=== PATIENT | male | born 1990 | race Caucasian/White ===

== ENCOUNTER 2021-11-01 19:03 | Emergency (ER) | payer OTHER ==
[2021-11-01] MEDS ORDERED: CLINDAMYCIN 150 MG CAP PO STA (20:04)
--- NOTE | 2021-11-01 20:09 | ED ---
Eye Problem HPI - General Chief complaint: Eye Problems Stated complaint: Eye Infection Source: patient Mode of arrival: ambulatory Limitations: no limitations - History of Present Illness Initial comments: Patient is a 31-year-old male who presents to the emergency department with right lower eyelid swelling. Patient reports that he woke up yesterday with the swelling. He denies eye injury or trauma. Patient states he he has been working outside and thinks he may have been bit. Patient states he tried to pop it does cause increased swelling. He denies eye pain, blurry vision, and double vision. Patient denies recent upper respiratory infection. Patient denies recent sick contacts. - Related Data Previous Rx's Medication Instructions Recorded Clindamycin HCl 300 mg PO Q6HR 10 Days #40 cap 11/01/21 Allergies Allergy/AdvReac Type Severity Reaction Status Date / Time No Known Allergies Allergy Verified 11/01/21 19:33 Review of Systems ROS Statement: Those systems with pertinent positive or pertinent negative responses have been documented in the HPI. ROS Other: All systems not noted in ROS Statement are negative. Past Medical History Past Medical History: No Reported History History of Any Multi-Drug Resistant Organisms: None Reported Past Surgical History: No Surgical Hx Reported Past Psychological History: ADD/ADHD Smoking Status: Current every day smoker Past Alcohol Use History: Occasional Past Drug Use History: Marijuana General Exam Limitations: no limitations General appearance: alert, in no apparent distress Head exam: Present: atraumatic, normocephalic, normal inspection Eye exam: Present: PERRL, EOMI (No pain with movement), other (Swelling and erythema in the right medial canthus region, nonfluctuant). Absent: scleral icterus, conjunctival injection, periorbital tenderness ENT exam: Present: normal oropharynx, TM's normal bilaterally Neck exam: Present: normal inspection, full ROM. Absent: lymphadenopathy Respiratory exam: Present: normal lung sounds bilaterally. Absent: respiratory distress, wheezes, rales, rhonchi, stridor Cardiovascular Exam: Present: regular rate, normal rhythm, normal heart sounds. Absent: systolic murmur, diastolic murmur, rubs, gallop, clicks GI/Abdominal exam: Present: soft, normal bowel sounds. Absent: distended, tenderness, guarding, rebound, rigid Neurological exam: Present: alert, oriented X3, CN II-XII intact Psychiatric exam: Present: normal affect, normal mood Skin exam: Present: warm, dry, intact, normal color. Absent: rash Course Vital Signs 11/01/21 19:30 Temperature 98.9 F Pulse Rate 85 Respiratory 18 Rate Blood Pressure 130/79 O2 Sat by Pulse 96 Oximetry Medical Decision Making - Medical Decision Making This is a 31-year-old male who presents with right lower eyelid swelling since yesterday morning. Thorough history and examination were performed. Patient afebrile. There is edema and redness in the the right medial canthus region that is non-fluctuant. It is nontender to palpation. PERRL. Patient denies blurry vision, double vision, and pain with eye movement. He denies upper respiratory symptoms and recent sick contacts. Patient will be discharged with ophthalmology referral and clindamycin prescription. He is instructed to take the clindamycin as directed and return to the emergency department if he experiences new, concerning, or worsening symptoms, including not limited to severe eye pain or vision changes. Patient verbalizes understanding and is agreeable to plan. Dr. Bee is my attending. Disposition Clinical Impression: Eyelid gland swelling Disposition: HOME SELF-CARE Condition: Good Additional Instructions: Please take medication as directed. It is important that you follow-up with ophthalmology at earliest available appointment. Return to the emergency department if you experience new, concerning, or worsening symptoms, not limited to eye pain or changes in vision. Prescriptions: Clindamycin HCl 300 mg PO Q6HR 10 Days #40 cap Is patient prescribed a controlled substance at d/c from ED?: No Referrals: None,Stated [Primary Care Provider] - 1-2 days Jill James MD [STAFF PHYSICIAN] - 1-2 days Time of Disposition: 20:09
[2021-11-01 20:23] VITALS: BP 140/75; PULSE 90; RESP 16; TEMP 97.6
== END 2021-11-01 20:23 | disposition home or self-care (01) ==
LOC: EC 19:03
DX: R59.9 Enlarged lymph nodes, unspecified (principal); F17.200 Nicotine dependence, unspecified, uncomplicated; F12.90 Cannabis use, unspecified, uncomplicated
CPT/HCPCS: 99283

== ENCOUNTER 2021-11-22 11:30 | Emergency (ER) | payer OTHER ==
[2021-11-22 12:04] VITALS: BP 114/70; PULSE 74; RESP 18; TEMP 98.6
--- NOTE | 2021-11-22 12:52 | ED ---
General Adult HPI - General Chief complaint: Dental/Oral Stated complaint: Dental Pain Time Seen by Provider: 11/22/21 12:06 Source: patient Mode of arrival: ambulatory Limitations: no limitations - History of Present Illness Initial comments: Dictation was produced using [employer] dictation software. please excuse any grammatical, word or spelling errors. Chief Complaint: 31-year-old male with poor dentition presents to the emergency department for dental and facial pain History of Present Illness: 31-year-old male who presents emergency department for 2-3 days of worsening dental and facial pain. Patient has poor dentition. Patient states the pain is to his left lower mandibular area and left chin. Patient had his mother called the dentist office and they requested he come to the emergency room to be started on antibiotics prior to dental evaluation. Patient denies any tongue swelling. Denies any pain under his chin. No difficulty breathing or difficulty swallowing. Patient has any constitutional symptoms. Denies any trismus The ROS documented in this emergency department record has been reviewed and confirmed by me. Those systems with pertinent positive or negative responses have been documented in the HPI. All other systems are other negative and/or noncontributory. PHYSICAL EXAM: General Impression: Alert and oriented x3, not in acute distress HEENT: Normocephalic atraumatic, extra-ocular movements intact, pupils equal and reactive to light bilaterally, mucous membranes moist, mild induration to the left anterior chain, no submandibular induration or swelling, sublingual space is nontender edematous. Patient not showing any respiratory distress, no neck swelling Cardiovascular: Heart regular rate and rhythm Chest: Able to complete full sentences, no retractions, no tachypnea Musculoskeletal: Pulses present and equal in all extremities, no peripheral edema Motor: no focal deficits noted Neurological: CN II-XII grossly intact, no focal motor or sensory deficits noted Skin: Intact with no visualized rashes Psych: Normal affect and mood ED course: 31-year-old male presents emergency Department with dental pain and dental infection. He is experiencing severe symptoms but is not showing any signs of Tre's angina. As upon arrival are within acceptable limits. Patient will be given oral antibiotics and oral analgesics. He has an appointment with the dentist in 4 days. Patient warned of the early signs of Tre's angina and told to seek medical medical attention if he starts experiencing symptoms like trismus, tongue swelling, difficulty breathing or swallowing etc. Patient is agreeable to plan. Patient will be discharged. - Related Data Previous Rx's Medication Instructions Recorded Clindamycin HCl 300 mg PO Q6HR 10 Days #40 cap 11/01/21 Amoxic-Pot Clav 875-125Mg 1 tab PO BID 10 Days #20 tab 11/22/21 [Augmentin 875-125] HYDROcodone/APAP 5-325MG [[place] 1 tab PO Q6HR PRN 3 Days #12 tab 11/22/21 5-325] Allergies Allergy/AdvReac Type Severity Reaction Status Date / Time codeine Allergy Unknown Verified 11/22/21 12:04 Review of Systems ROS Statement: Those systems with pertinent positive or pertinent negative responses have been documented in the HPI. ROS Other: All systems not noted in ROS Statement are negative. Past Medical History Past Medical History: No Reported History History of Any Multi-Drug Resistant Organisms: None Reported Past Surgical History: No Surgical Hx Reported Past Psychological History: ADD/ADHD Smoking Status: Current every day smoker Past Alcohol Use History: Occasional Past Drug Use History: Marijuana General Exam Limitations: no limitations Course Vital Signs 11/22/21 12:02 Temperature 98.6 F Pulse Rate 74 Respiratory 18 Rate Blood Pressure 114/70 O2 Sat by Pulse 99 Oximetry Disposition Clinical Impression: Dental infection Disposition: HOME SELF-CARE Condition: Fair Instructions (If sedation given, give patient instructions): Dental Abscess (ED) Prescriptions: Amoxic-Pot Clav 875-125Mg [Augmentin 875-125] 1 tab PO BID 10 Days #20 tab HYDROcodone/APAP 5-325MG [[place] 5-325] 1 tab PO Q6HR PRN 3 Days #12 tab PRN Reason: Severe Pain Is patient prescribed a controlled substance at d/c from ED?: Yes If prescribed controlled substance>3 days was MAPS reviewed?: Prescribed <3 Days Referrals: None,Stated [Primary Care Provider] - 1-2 days
== END 2021-11-22 13:00 | disposition home or self-care (01) ==
LOC: EC 11:30
DX: K04.7 Periapical abscess without sinus (principal); F90.9 Attention-deficit hyperactivity disorder, unspecified type; F17.200 Nicotine dependence, unspecified, uncomplicated; F12.90 Cannabis use, unspecified, uncomplicated; Z88.5 Allergy status to narcotic agent
CPT/HCPCS: 99282

== ENCOUNTER 2021-12-22 09:31 | Emergency (ER) | payer OTHER ==
[2021-12-22 09:43] VITALS: TEMP 98.3
[2021-12-22] MEDS ORDERED: ONDANSETRON 4 MG/2 ML VIAL IVP STA (10:01)
[2021-12-22] MEDS ORDERED: SODIUM CHLORIDE 0.9% 1,000 ML IV STA (10:01)
[2021-12-22 10:31] LABS: Basophils # (A) 0.1 k/uL (0-0.2); Basophils % (A) 1 %; Eosinophils # (A) 0.5 k/uL (0-0.7); Eosinophils % (A) 5 %; HCT 46.7 % (39.0-53.0); HGB 15.4 gm/dL (13.0-17.5); Lymphocytes # (A) 3.1 k/uL (1.0-4.8); Lymphocytes % (A) 31 %; MCH 27.9 pg (25.0-35.0); MCV 84.5 fL (80.0-100.0); Monocytes # (A) 0.6 k/uL (0-1.0); Monocytes % (A) 6 %; Neutrophils # (A) 5.5 k/uL (1.3-7.7); Neutrophils % (A) 56 %; Platelet Count 237 k/uL (150-450); RBC 5.53 m/uL (4.30-5.90); RDW 13.5 % (11.5-15.5)
[2021-12-22 10:40] LABS: ALT 391 U/L (4-49); AST 140 U/L (17-59); African American GFR (CKD) >90 (>60 ml/min/1.73 sqM); Albumin 4.3 g/dL (3.5-5.0); Alkaline Phosphatase 73 U/L (38-126); Amylase 50 U/L (30-110); Anion Gap 8 mmol/L; Blood Urea Nitrogen 11 mg/dL (9-20); Carbon Dioxide 29 mmol/L (22-30); Chloride 102 mmol/L (98-107); Glucose 98 mg/dL (74-99); Lipase 115 U/L (23-300); Non-African American GFR(CKD) >90 (>60 ml/min/1.73 sqM); Potassium 3.7 mmol/L (3.5-5.1); Sodium 139 mmol/L (137-145); Total Protein 7.5 g/dL (6.3-8.2)
[2021-12-22 11:08] LABS: Appearance,Urine Clear (Clear); Bilirubin,Urine Negative (Negative); Blood,Urine Negative (Negative); Color,Urine Yellow; Glucose,Urine (UA) Negative (Negative); Ketones,Urine Negative (Negative); Leukocyte Esterase,Urine Negative (Negative); Nitrite,Urine Negative (Negative); Protein,Urine Trace (Negative); Specific Gravity,Urine 1.017 (1.001-1.035)
--- NOTE | 2021-12-22 11:59 | ED ---
Abdominal Pain HPI - General Chief Complaint: Abdominal Pain Stated Complaint: abd pain Time Seen by Provider: 12/22/21 09:56 Source: patient, RN notes reviewed Mode of arrival: ambulatory Limitations: no limitations - History of Present Illness Initial Comments: This is a 31-year-old male who presents to the emergency department for nausea, vomiting, and abdominal pain. He initially had symptoms from 12/12-12/14 and then had symptoms again from 12/19 through today. States that the first time he had nausea, vomiting, and abdominal pain, and when symptoms returned for the second time, they started with just abdominal pain. His first episode of vom iting this time was this morning. He notes that he had a green and loose bowel movement this morning. Abdominal pain is described as being in the epigastric and periumbilical region. Denies any fevers, chills, sore throat, cough, dyspnea, chest pain, palpitations, back pain, or headaches. MD Complaint: abdominal pain Location: periumbilical, epigastric - Related Data Previous Rx's Medication Instructions Recorded Clindamycin HCl 300 mg PO Q6HR 10 Days #40 cap 11/01/21 Amoxic-Pot Clav 875-125Mg 1 tab PO BID 10 Days #20 tab 11/22/21 [Augmentin 875-125] HYDROcodone/APAP 5-325MG [[place] 1 tab PO Q6HR PRN 3 Days #12 tab 11/22/21 5-325] Ondansetron Odt [Zofran Odt] 4 mg PO Q8HR PRN #25 tab 12/22/21 Allergies Allergy/AdvReac Type Severity Reaction Status Date / Time codeine Allergy Unknown Verified 12/22/21 09:43 Review of Systems ROS Statement: Those systems with pertinent positive or pertinent negative responses have been documented in the HPI. ROS Other: All systems not noted in ROS Statement are negative. Past Medical History Past Medical History: No Reported History History of Any Multi-Drug Resistant Organisms: None Reported Past Surgical History: No Surgical Hx Reported Past Psychological History: ADD/ADHD Smoking Status: Current every day smoker Past Alcohol Use History: Occasional Past Drug Use History: Marijuana General Exam Limitations: no limitations General appearance: alert, in no apparent distress Head exam: Present: atraumatic, normocephalic, normal inspection Respiratory exam: Present: normal lung sounds bilaterally. Absent: respiratory distress, wheezes, rales, rhonchi, stridor Cardiovascular Exam: Present: regular rate, normal rhythm, normal heart sounds. Absent: systolic murmur, diastolic murmur, rubs, gallop, clicks GI/Abdominal exam: Present: soft, rebound (minor), normal bowel sounds, other (Improvement in pain when palpating the abdomen). Absent: distended Neurological exam: Present: alert, oriented X3, CN II-XII intact Psychiatric exam: Present: normal affect, normal mood Skin exam: Present: warm, dry, intact, normal color. Absent: rash Course Vital Signs 12/22/21 12/22/21 09:41 12:00 Temperature 98.3 F Pulse Rate 58 L 64 Respiratory 16 16 Rate Blood Pressure 134/81 137/87 O2 Sat by Pulse 100 98 Oximetry Medical Decision Making - Medical Decision Making This is a 31-year-old male who presents to the emergency department for abdominal pain, nausea, and vomiting. Patient did not exhibit any tenderness on examination. He was treated with IV fluids and Zofran. Lab work revealed elevated liver enzymes. Patient denies any known history of liver problems. He does use marijuana regularly with occasional alcohol use. Given the elevated liver enzymes and no prior imaging, ultrasound of the right upper quadrant was obtained. This revealed no abnormalities. Instructed the patient to become established with a primary care provider in order to have additional lab work and reevaluation of liver enzymes. Prescription for Zofran sent to the pharmacy for any additional nausea and vomiting. Return precautions reviewed in depth, the patient is instructed to return to the emergency department with any new, worsening, or concerning symptoms. Patient verbalized understanding. This case was discussed in detail with the attending ED physician. Presentation, findings, and treatment plan discussed in detail as well. - Lab Data Result diagrams: 12/22/21 10:12 12/22/21 10:12 Lab Results 12/22/21 12/22/21 12/22/21 Range/Units 10:12 10:12 10:12 WBC 10.0 (3.8-10.6) k/uL RBC 5.53 (4.30-5.90) m/uL Hgb 15.4 (13.0-17.5) gm/dL Hct 46.7 (39.0-53.0) % MCV 84.5 (80.0-100.0) fL MCH 27.9 (25.0-35.0) pg MCHC 33.0 (31.0-37.0) g/dL RDW 13.5 (11.5-15.5) % Plt Count 237 (150-450) k/uL MPV 8.0 Neutrophils % 56 % Lymphocytes % 31 % Monocytes % 6 % Eosinophils % 5 % Basophils % 1 % Neutrophils # 5.5 (1.3-7.7) k/uL Lymphocytes # 3.1 (1.0-4.8) k/uL Monocytes # 0.6 (0-1.0) k/uL Eosinophils # 0.5 (0-0.7) k/uL Basophils # 0.1 (0-0.2) k/uL Sodium 139 (137-145) mmol/L Potassium 3.7 (3.5-5.1) mmol/L Chloride 102 (98-107) mmol/L Carbon Dioxide 29 (22-30) mmol/L Anion Gap 8 mmol/L BUN 11 (9-20) mg/dL Creatinine 0.92 (0.66-1.25) mg/dL Est GFR (CKD-EPI)AfAm >90 (>60 ml/min/1.73 sqM) Est GFR (CKD-EPI)NonAf >90 (>60 ml/min/1.73 sqM) Glucose 98 (74-99) mg/dL Calcium 9.0 (8.4-10.2) mg/dL Total Bilirubin 1.0 (0.2-1.3) mg/dL AST 140 H (17-59) U/L ALT 391 H (4-49) U/L Alkaline Phosphatase 73 (38-126) U/L Total Protein 7.5 (6.3-8.2) g/dL Albumin 4.3 (3.5-5.0) g/dL Amylase 50 (30-110) U/L Lipase 115 (23-300) U/L Urine Color Yellow Urine Appearance Clear (Clear) Urine pH 6.0 (5.0-8.0) Ur Specific [place] 1.017 (1.001-1.035) Urine Protein Trace H (Negative) Urine Glucose (UA) Negative (Negative) Urine Ketones Negative (Negative) Urine Blood Negative (Negative) Urine Nitrite Negative (Negative) Urine Bilirubin Negative (Negative) Urine Urobilinogen 2.0 (<2.0) mg/dL Ur Leukocyte Esterase Negative (Negative) - Radiology Data Radiology results: report reviewed, image reviewed Disposition Clinical Impression: Abdominal pain Disposition: HOME SELF-CARE Instructions (If sedation given, give patient instructions): Abdominal Pain (ED) Additional Instructions: Return to the emergency department with any new, worsening, or concerning symptoms. Take the Zofran as needed for nausea and vomiting up to 3 times daily. Become established with a primary care provider for reevaluation of your liver enzymes. Prescriptions: Ondansetron Odt [Zofran Odt] 4 mg PO Q8HR PRN #25 tab PRN Reason: Nausea And Vomiting Is patient prescribed a controlled substance at d/c from ED?: No Referrals: None,Stated [Primary Care Provider] - 1-2 days
--- NOTE | 2021-12-22 12:21 | US ---
EXAMINATION TYPE: US gallbladder DATE OF EXAM: 12/22/2021 COMPARISON: NONE CLINICAL HISTORY: Elevated liver enzymes, nausea/vomiting, abd pain. Pt states he ate at 9am this mor [place], but immediately vomited. Also having abdominal pain x 1 week. EXAM MEASUREMENTS: Liver Length: 14.2 cm Gallbladder Wall: 0.2 cm CBD: 0.3 cm Right Kidney: 11.1 x 5.95 x 4.5 cm Pancreas: wnl Liver: wnl Gallbladder: wnl. I thought I saw an echogenic foci in the anterior GB wall in the sagittal plane, b ut when turning on it I realized it wasn't real. Evidence for sonographic [place]'s sign: No CBD: wnl Right Kidney: wnl Visualized pancreas appears within normal limits. No suspicious focal intrahepatic mass or ductal dil atation. Gallbladder is seen without shadowing mobile gallstones. No right-sided hydronephrosis. IMPRESSION: No shadowing mobile gallstones or ultrasound evidence for acute cholecystitis
[2021-12-22 13:12] VITALS: BP 117/80; PULSE 56; RESP 18
== END 2021-12-22 13:11 | disposition home or self-care (01) ==
LOC: EC 09:31
DX: R10.9 Unspecified abdominal pain (principal); F17.200 Nicotine dependence, unspecified, uncomplicated; Z88.5 Allergy status to narcotic agent
CPT/HCPCS: 36415; 80053; 82150; 83690; 85025; 81003; 76705; 99284; 96374; J2405

== ENCOUNTER → 2022-01-16 | Outpatient (CLI) | payer OTHER ==
[2022-01-16 10:37] LABS: HCT 45.7 % (39.6-50.0); MCHC 32.8 g/dL (32.0-37.0); MCV 82.3 fL (80.0-97.0); NRBC Per 100 WBC 0 /100 WBCS (0.0-0.0); Platelet Count 321 X 10*3/uL (140-440); RBC 5.55 X 10*6/uL (4.40-5.60); RDW 14.2 % (11.5-14.5); WBC 17.15 X 10*3/uL (4.50-10.00)
[2022-01-16 11:07] LABS: African American GFR (CKD) 101.7 (60.0-200.0); Albumin 4.8 g/dL (3.8-4.9); Albumin/Globulin Ratio 1.71 (1.60-3.17); Anion Gap 11.4 mmol/L (10.00-18.00); BUN/Creat Ratio 15.55 Ratio (12.00-20.00); Blood Urea Nitrogen 17.1 mg/dL (9.0-27.0); Calcium 9.8 mg/dL (8.7-10.3); Carbon Dioxide 24.6 mmol/L (20.0-27.5); Globulin 2.8 g/dL (1.6-3.3); Non-African American GFR(CKD) 87.7 (60.0-200.0); Potassium 3.6 mmol/L (3.5-5.5); T4, Free (Free Thyroxine) 1.29 ng/dL (0.800-1.800); Total Bilirubin 0.9 mg/dL (0.30-1.20); Total Protein 7.6 g/dL (6.2-8.2)
[2022-01-16 11:09] LABS: Hepatitis A Antibody IgM Nonreactive (Nonreactive); Hepatitis B Core IgM Nonreactive (Nonreactive); Hepatitis B Surface Antigen Nonreactive (Nonreactive); Hepatitis C IgG Antibody Reactive (Nonreactive)
[2022-01-16 11:18] LABS: Basophils # (A) 0.07 X 10*3/uL (0.00-0.10); Basophils % (A) 0.4 %; Eosinophils # (A) 0.04 X 10*3/uL (0.04-0.35); Eosinophils % (A) 0.2 %; Immature Grans, Automated 0.3 %; Lymphocytes # (A) 3.27 X 10*3/uL (0.90-5.00); Lymphocytes % (A) 19.1 %; Monocytes # (A) 1.54 X 10*3/uL (0.20-1.00); Neutrophils # (A) 12.17 X 10*3/uL (1.80-7.70)
[2022-01-16 22:23] LABS: HIV 2 AB Non-Reactive (Non-Reactive); HIV AB P24 Non-Reactive (Non-Reactive); HIV P24 AG Non-Reactive (Non-Reactive)
== END | disposition home or self-care (01) ==
LOC: LABWHC1 07:09
PROVIDERS: ATTEND Physician Assistant Medical
DX: F19.11 Other psychoactive substance abuse, in remission (principal)
CPT/HCPCS: 36415; 80053; 80074; 82977; 84439; 84443; 85025; 87390

== ENCOUNTER → 2022-02-20 | Outpatient (CLI) | payer OTHER ==
[2022-02-20 23:21] LABS: African American GFR (CKD) 114.1 (60.0-200.0); Albumin/Globulin Ratio 1.48 (1.60-3.17); Anion Gap 12.1 mmol/L (10.00-18.00); BUN/Creat Ratio 12.8 Ratio (12.00-20.00); Blood Urea Nitrogen 12.8 mg/dL (9.0-27.0); Calcium 9.2 mg/dL (8.7-10.3); Carbon Dioxide 26.8 mmol/L (20.0-27.5); Globulin 2.7 g/dL (1.6-3.3); Non-African American GFR(CKD) 98.5 (60.0-200.0); Potassium 3.9 mmol/L (3.5-5.5); Total Bilirubin 0.9 mg/dL (0.30-1.20); Total Protein 6.7 g/dL (6.2-8.2)
[2022-02-21 01:11] LABS: Alpha Fetoprotein, Tumor Mkr <1.82 ng/mL (0.00-7.90)
== END | disposition home or self-care (01) ==
LOC: LABWHC1 15:00
PROVIDERS: ATTEND Nurse Practitioner Family
DX: B18.2 Chronic viral hepatitis C (principal)
CPT/HCPCS: 36415; 80053; 82105; 86704; 87522

== ENCOUNTER → 2022-06-23 | Outpatient (CLI) | payer OTHER ==
[2022-06-23 15:36] LABS: Basophils # (A) 0.08 X 10*3/uL (0.00-0.10); Eosinophils # (A) 1.25 X 10*3/uL (0.04-0.35); Eosinophils % (A) 15.3 %; HCT 47.1 % (39.6-50.0); HGB 16.1 g/dL (13.0-17.0); Immature Grans, Automated 0.2 %; Lymphocytes # (A) 3.14 X 10*3/uL (0.90-5.00); Lymphocytes % (A) 38.5 %; MCH 27.4 pg (27.0-32.0); MCHC 34.2 g/dL (32.0-37.0); MCV 80.1 fL (80.0-97.0); Mean Platelet Volume 11.1 fL (9.5-12.2); Monocytes # (A) 0.87 X 10*3/uL (0.20-1.00); Monocytes % (A) 10.7 %; NRBC Per 100 WBC 0 /100 WBCS (0.0-0.0); Neutrophils % (A) 34.3 %; Platelet Count 311 X 10*3/uL (140-440); RBC 5.88 X 10*6/uL (4.40-5.60); RDW 13.4 % (11.5-14.5); WBC 8.16 X 10*3/uL (4.50-10.00)
[2022-06-23 16:18] LABS: African American GFR (CKD) 129.6 (60.0-200.0); Albumin 4.6 g/dL (3.8-4.9); Albumin/Globulin Ratio 1.84 (1.60-3.17); Anion Gap 9.4 mmol/L (10.00-18.00); BUN/Creat Ratio 18.89 Ratio (12.00-20.00); Calcium 9.6 mg/dL (8.7-10.3); Carbon Dioxide 27.6 mmol/L (20.0-27.5); Globulin 2.5 g/dL (1.6-3.3); Non-African American GFR(CKD) 111.8 (60.0-200.0); Potassium 4.3 mmol/L (3.5-5.5); Total Bilirubin 1.1 mg/dL (0.30-1.20); Total Protein 7.1 g/dL (6.2-8.2)
== END | disposition home or self-care (01) ==
LOC: LABWHC1 09:13
PROVIDERS: ATTEND Nurse Practitioner Family
DX: B18.2 Chronic viral hepatitis C (principal)
CPT/HCPCS: 36415; 80053; 85025; 87522